=== PATIENT | female | born 1995 | race Caucasian/White ===

== ENCOUNTER → 2022-04-08 23:40 | Observation (INO) ==
[2022-04-08 22:33] LABS: Bilirubin,Urine Negative (Negative); Blood,Urine Negative (Negative); Clarity,Urine Clear (Clear); Color,Urine Light-Yellow (Yellow); Glucose,Urine (UA) Normal (Normal); Ketones,Urine Negative (Negative); Leukocyte Esterase,Urine Negative (Negative); Nitrite,Urine Negative (Negative); PH,Urine 6.5 pH Units (5.0-8.0); Protein,Urine Trace mg/dL (Neg-Trace); Specific Gravity,Urine 1.023 (1.010-1.025); Urobilinogen,Urine Normal (Normal)
== END | disposition home or self-care (01) ==
LOC: 1NENULAB
PROVIDERS: ADMIT Advanced Practice Midwife; ATTEND Advanced Practice Midwife

== ENCOUNTER 2022-05-09 15:09 | Observation (INO) ==
[2022-05-09 15:57] LABS: Basophils % 0.4 %; Eosinophils # 0.2 K/mcL (0.0-0.6); Eosinophils % 1.8 %; Hematocrit 35.7 % (35.3-44.9); Hemoglobin 11.2 g/dL (11.5-15.4); Immature Granulocytes % 0.7 % (0-4); Lymphocytes # 1.8 K/mcL (0.6-4.6); Lymphocytes % 16.9 %; Mean Corpuscular HGB Conc 31.4 g/dL (31.6-35.5); Mean Corpuscular Hemoglobin 27.6 pg (28.0-33.3); Mean Corpuscular Volume 87.9 fL (83.0-100.0); Mean Platelet Volume 10.1 fL (9.4-12.4); Monocytes # 0.7 K/mcL (0.0-1.3); Monocytes % 6.7 %; Neutrophils # 7.8 K/mcL (1.6-8.9); Platelet Count 294 K/mcL (140-400); Red Blood Count 4.06 M/mcL (3.82-4.97); Red Cell Distribution Width 13.2 % (11.5-14.5); Segmented Neutrophils % 73.5 %; White Blood Count 10.7 K/mcL (4.3-11.1)
[2022-05-09 16:19] LABS: Alanine Aminotransferase 7 Units/L (7-52); Aspartate Amino Transferase 10 Units/L (13-39); BUN/Creatinine Ratio 13 (6-26); Blood Urea Nitrogen 6 mg/dL (6-20); Lactate Dehydrogenase 115 Units/L (140-271); Uric Acid 4.1 mg/dL (2.3-7.6)
== END 2022-05-09 17:10 | disposition home or self-care (01) ==
LOC: 1NENULAB
PROVIDERS: ADMIT Advanced Practice Midwife; ATTEND Advanced Practice Midwife

== ENCOUNTER → 2022-05-23 23:40 | Observation (INO) ==
[2022-05-23 19:46] LABS: Basophils % 0.5 %; Eosinophils # 0.3 K/mcL (0.0-0.6); Eosinophils % 3.4 %; Hematocrit 35.4 % (35.3-44.9); Immature Granulocytes % 0.9 % (0-4); Lymphocytes # 1.5 K/mcL (0.6-4.6); Mean Corpuscular HGB Conc 31.1 g/dL (31.6-35.5); Mean Corpuscular Hemoglobin 27.3 pg (28.0-33.3); Mean Corpuscular Volume 87.8 fL (83.0-100.0); Mean Platelet Volume 10.9 fL (9.4-12.4); Monocytes # 0.6 K/mcL (0.0-1.3); Monocytes % 7.2 %; Neutrophils # 5.7 K/mcL (1.6-8.9); Platelet Count 270 K/mcL (140-400); Red Blood Count 4.03 M/mcL (3.82-4.97); Red Cell Distribution Width 13.2 % (11.5-14.5); White Blood Count 8.2 K/mcL (4.3-11.1)
[2022-05-23 19:49] LABS: Creatinine,Urine 54 mg/dL; Protein/Creatinine Ratio,Urine 0.17 mg/mg (0.00-0.20)
[2022-05-23 19:57] LABS: Alanine Aminotransferase 8 Units/L (7-52); Amphetamine Screen,Urine Negative ng/mL (Cutoff=1000); Aspartate Amino Transferase 10 Units/L (13-39); BUN/Creatinine Ratio 14 (6-26); Barbiturate Screen,Urine Negative ng/mL (Cutoff=200); Benzodiazepines Screen,Urine Negative ng/mL (Cutoff=200); Blood Urea Nitrogen 8 mg/dL (6-20); Cannabinoid Screen,Urine Positive ng/mL (Cutoff = 50); Cocaine Screen,Urine Negative ng/mL (Cutoff= 300); Lactate Dehydrogenase 105 Units/L (140-271); Opiate Screen,Urine Negative ng/mL (Cutoff=300); Phencyclidine Screen,Urine Negative ng/mL (Cutoff=25); Uric Acid 4.1 mg/dL (2.3-7.6)
[2022-05-23 20:15] LABS: Amorphous Sediment,Urine Few per hpf (None-Few); Bacteria,Urine Few per hpf (None-Few); Bilirubin,Urine Negative (Negative); Blood,Urine Negative (Negative); Clarity,Urine Turbid (Clear); Color,Urine Light-Yellow (Yellow); Glucose,Urine (UA) Normal (Normal); Ketones,Urine Negative (Negative); Leukocyte Esterase,Urine Negative (Negative); Mucus,Urine Few per lpf (None-Few); Nitrite,Urine Negative (Negative); Protein,Urine Negative (Neg-Trace); RBC,Urine 0-3 per hpf (0-3); Specific Gravity,Urine 1.011 (1.010-1.025); Squamous Epithelial Cell,Urine Few per hpf (None-Few); Urobilinogen,Urine Normal (Normal); WBC,Urine 0-3 per hpf (0-3)
[2022-05-23 20:32] LABS: Adenovirus Not Detected (Not Detect); Bordetella Pertussis Not Detected (Not Detect); Chlamydophila pneumoniae Not Detected (Not Detect); Coronavirus 229E Not Detected (Not Detect); Coronavirus HKU1 Not Detected (Not Detect); Coronavirus NL63 Not Detected (Not Detect); Coronavirus OC43 Not Detected (Not Detect); Human Metapneumovirus Not Detected (Not Detect); Human Rhinovirus/Enterovirus DETECTED (Not Detect); Influenza A Subtype 2009 H1 Not Detected (Not Detect); Influenza B Not Detected (Not Detect); Mycoplasma pneumoniae Not Detected (Not Detect); Parainfluenza Virus 1 Not Detected (Not Detect); Parainfluenza Virus 2 Not Detected (Not Detect); Parainfluenza Virus 3 Not Detected (Not Detect); Parainfluenza Virus 4 Not Detected (Not Detect); Respiratory Syncytial Virus Not Detected (Not Detect); SARS-CoV-2 Not Detected (Not Detect)
[2022-05-23 22:23] VITALS: O2SAT 97
[~2022-05-23 23:40] MED LIST: Ringers Solution, Lactated 1,000 ML IVC ONE; Ringers Solution, Lactated 1,000 ML ONE; predniSONE 20 MG TABLET PO ONE
== END | disposition home or self-care (01) ==
LOC: 1NENULAB
PROVIDERS: ADMIT Obstetrics & Gynecology; ATTEND Obstetrics & Gynecology

== ENCOUNTER 2022-06-22 05:33 | Inpatient (IN) ==
[2022-06-22] MEDS ORDERED: Metoclopramide 10 MG/2 ML VIAL IVP ONE (05:42)
[2022-06-22] MEDS ORDERED: Famotidine 20 MG/2 ML VIAL IVP ONE (05:42)
[2022-06-22] MEDS ORDERED: CeFAZolin Syr 3,000MG/30 ML 3,000 MG/30 ML SYRINGE IVPB ONE (05:46)
[2022-06-22] MEDS ORDERED: Ringers Solution, Lactated 1,000 ML IVC ONE (05:46)
[2022-06-22] MEDS ORDERED: Oxytocin 30 UNIT/503 ML BAG IVC SCH (06:00)
[2022-06-22] MEDS ORDERED: Ringers Solution, Lactated 1,000 ML IVC SCH ×2 (06:00→12:47)
[2022-06-22] MEDS ORDERED: Acetaminophen IV 1,000 MG/100 ML BAG IVPB PRN (06:15)
[2022-06-22] MEDS ORDERED: *HR* Labetalol 20 MG/4 ML SYRINGE IVP PRN (06:15)
[2022-06-22] MEDS ORDERED: Promethazine 6.25 MG in Water for inj. (sterile) 20 ML IVPB PRN (06:15)
[2022-06-22] MEDS ORDERED: *HR* HYDROmorphone PF 0.5 MG/0.5 ML SYRINGE IVP PRN (06:15)
[2022-06-22] MEDS ORDERED: *HR* Meperidine 25 MG/ML SYRINGE IVP PRN (06:15)
[2022-06-22 06:21] LABS: Basophils % 0.5 %; Eosinophils # 0.2 K/mcL (0.0-0.6); Hematocrit 32.3 % (35.3-44.9); Hemoglobin 10.1 g/dL (11.5-15.4); Immature Granulocytes % 1.1 % (0-4); Lymphocytes # 2.2 K/mcL (0.6-4.6); Lymphocytes % 27.6 %; Mean Corpuscular HGB Conc 31.3 g/dL (31.6-35.5); Mean Corpuscular Hemoglobin 26.6 pg (28.0-33.3); Monocytes # 0.6 K/mcL (0.0-1.3); Monocytes % 7.7 %; Neutrophils # 4.8 K/mcL (1.6-8.9); Platelet Count 216 K/mcL (140-400); Red Cell Distribution Width 13.5 % (11.5-14.5); Segmented Neutrophils % 61.1 %; White Blood Count 7.9 K/mcL (4.3-11.1)
[2022-06-22] MEDS ORDERED: Ipratropium/Albuterol Neb 3 ML IH PRN (06:40)
[2022-06-22] MEDS ORDERED: *HR* Morphine Sulfate/PF 10 MG/10 ML AMPUL ONE (07:34)
[2022-06-22] MEDS ORDERED: Ondansetron 4 MG/2 ML VIAL ONE (07:34)
[2022-06-22] MEDS ORDERED: *HR* FentaNYL (PF) 100 MCG/2 ML VIAL ONE (07:34)
[2022-06-22] MEDS ORDERED: EPHEDrine sulfate 50 MG/10 ML VIAL IVP ONE (07:34)
[2022-06-22] MEDS ORDERED: *HR* Midazolam HCl 2 MG/2 ML VIAL ONE (07:34)
[2022-06-22] MEDS ORDERED: *HR* Phenylephrine 10 MG/ML VIAL ONE (07:35)
[2022-06-22] MEDS ORDERED: Acetaminophen IV 1,000 MG/100 ML BAG IVPB ONE (07:39)
[2022-06-22] MEDS ORDERED: Ketorolac 30 MG/ML VIAL ONE (07:39)
[2022-06-22] MEDS ORDERED: Ringers Solution, Lactated 1,000 ML ONE (07:39)
[2022-06-22] MEDS ORDERED: Albuterol 2.5 MG/3 ML NEBULIZER IH ONE (07:39)
[2022-06-22] MEDS ORDERED: dexmedeTOMIDine in 0.9 % NaCL 80 MCG/20 ML MLS ONE (07:48)
[2022-06-22 09:38] LABS: Amphetamine Screen,Urine Negative ng/mL (Cutoff=1000); Barbiturate Screen,Urine Negative ng/mL (Cutoff=200); Benzodiazepines Screen,Urine Negative ng/mL (Cutoff=200); Cannabinoid Screen,Urine Positive ng/mL (Cutoff = 50); Cocaine Screen,Urine Negative ng/mL (Cutoff= 300); Opiate Screen,Urine Negative ng/mL (Cutoff=300); Phencyclidine Screen,Urine Negative ng/mL (Cutoff=25)
[2022-06-22] MEDS ORDERED: Ondansetron 4 MG/2 ML VIAL IVP PRN (12:47)
[2022-06-22] MEDS ORDERED: Metoclopramide 10 MG/2 ML VIAL IVP PRN (12:47)
[2022-06-22] MEDS ORDERED: OXYTOCIN/RINGERS LACTATE 10 UNIT/166.6 ML BAG IVC ONE (12:47)
[2022-06-22] MEDS: Ibuprofen 600 MG TABLET PO SCH ×2 (13:15→19:43)
[2022-06-22] MEDS: Acetaminophen 325 MG TABLET PO SCH ×2 (13:15→19:43)
[2022-06-22 14:26] LABS: Alanine Aminotransferase 11 Units/L (7-52); Aspartate Amino Transferase 19 Units/L (13-39); BUN/Creatinine Ratio 11 (6-26); Blood Urea Nitrogen 8 mg/dL (6-20); Lactate Dehydrogenase 213 Units/L (140-271); Uric Acid 6.4 mg/dL (2.3-7.6)
[2022-06-22] MEDS: *HR* OxyCODONE Immed Rel 5 MG TABLET PO PRN ×2 (14:45→22:03)
[2022-06-22] MEDS ORDERED: Budesonide/Formoterol 160/4.5 1 PUFF INH IH SCH (22:00)
[2022-06-22] MEDS ORDERED: Budesonide/Formoterol 160/4.5 1 PUFF INH IH PRN (23:44)
[2022-06-22] MEDS: *HR* Enoxaparin 60 MG/0.6 ML SYRINGE SQ SCH (23:57)
[2022-06-22] MEDS: Famotidine 20 MG TABLET PO SCH (23:57)
[2022-06-23] MEDS: Ibuprofen 600 MG TABLET PO SCH ×4 (04:01→21:40)
[2022-06-23] MEDS: Acetaminophen 325 MG TABLET PO SCH ×4 (04:01→21:41)
[2022-06-23] MEDS: *HR* OxyCODONE Immed Rel 5 MG TABLET PO PRN ×4 (04:01→20:14)
[2022-06-23 04:39] LABS: Basophils % 0.3 %; Eosinophils # 0.1 K/mcL (0.0-0.6); Eosinophils % 0.6 %; Hematocrit 29.7 % (35.3-44.9); Hemoglobin 9.4 g/dL (11.5-15.4); Lymphocytes # 2.7 K/mcL (0.6-4.6); Lymphocytes % 24.6 %; Mean Corpuscular HGB Conc 31.6 g/dL (31.6-35.5); Mean Corpuscular Hemoglobin 26.9 pg (28.0-33.3); Mean Corpuscular Volume 85.1 fL (83.0-100.0); Monocytes # 0.7 K/mcL (0.0-1.3); Monocytes % 6.7 %; Neutrophils # 7.4 K/mcL (1.6-8.9); Platelet Count 217 K/mcL (140-400); Red Blood Count 3.49 M/mcL (3.82-4.97); Red Cell Distribution Width 13.6 % (11.5-14.5); Segmented Neutrophils % 66.8 %; White Blood Count 11.1 K/mcL (4.3-11.1)
[2022-06-23] MEDS: Famotidine 20 MG TABLET PO SCH ×2 (08:01→20:14)
[2022-06-23] MEDS: *HR* Enoxaparin 60 MG/0.6 ML SYRINGE SQ SCH ×2 (08:01→20:14)
[2022-06-23] MEDS: Prenatal Vit/FA 1 EACH TABLET PO SCH (08:01)
[2022-06-23] MEDS ORDERED: Prenatal Vit/FA 1 EACH TABLET PO SCH (09:00)
[2022-06-23] MEDS ORDERED: Sennosides 8.6 MG TABLET PO SCH (21:30)
[2022-06-23] MEDS: Simethicone 80 MG TAB.CHEW PO PRN (21:39)
[2022-06-24] MEDS: *HR* OxyCODONE Immed Rel 5 MG TABLET PO PRN ×4 (00:17→15:05)
[2022-06-24] MEDS: Ibuprofen 600 MG TABLET PO SCH ×3 (05:14→11:08)
[2022-06-24] MEDS: Acetaminophen 325 MG TABLET PO SCH ×3 (05:14→11:08)
[2022-06-24] MEDS: *HR* Enoxaparin 60 MG/0.6 ML SYRINGE SQ SCH (07:56)
[2022-06-24] MEDS: Famotidine 20 MG TABLET PO SCH (07:56)
[2022-06-24] MEDS: Simethicone 80 MG TAB.CHEW PO PRN (07:56)
[2022-06-24] MEDS: Prenatal Vit/FA 1 EACH TABLET PO SCH (07:56)
[2022-06-24 08:26] VITALS: PULSE 71; TEMP 98; O2SAT 96
[2022-06-24 11:34] VITALS: BP 140/93
== END 2022-06-24 16:34 | disposition home or self-care (01) | DRG 539 ==
LOC: 1NENULAB 05:33 → 1NENUOBS 12:46
PROVIDERS: ADMIT Obstetrics & Gynecology; ATTEND Obstetrics & Gynecology